=== PATIENT | female | born 1990 | race Caucasian/White ===

== ENCOUNTER 2018-01-03 06:49 | Inpatient (IN) | payer BC ==
[~2018-01-03] VITALS: Ht 162.6 cm; Wt 76.8 kg
[2018-01-06] VITALS (40 sets, daily range): BP systolic 120–166; BP diastolic 71–99; PULSE 58–96; TEMP 97.8–98.5
[2018-01-06] MEDS ORDERED: PRENATAL MVI (07:23)
[2018-01-06] MEDS ORDERED: OSCAL 500 TAB500 MG PO (07:24)
[2018-01-06] MEDS ORDERED: NASACORT OTC NS (07:24)
[2018-01-06] MEDS ORDERED: ALAWAY 10 ML10 ML OP (07:25)
[2018-01-06] MEDS ORDERED: COLACE 100100 MG/CAP PO (07:26)
[2018-01-06] MEDS ORDERED: TYLENOL PM EXTR1 TA1 PO (07:26)
[2018-01-06 08:32] LABS: BASO # 0.1 (0.0-0.2); BASO % 0.8 % (0.0-2.0); EOS # 0.6 (0.0-0.7); EOS % 5.1 % (0-4.0); GRAN # 7.2 (1.4-6.5); GRAN % 64.2 % (42.2-75.2); HEMATOCRIT 38.2 % (37.0-47.0); HEMOGLOBIN 13.6 g/dl (12.5-16.0); LYMPH # 2.7 (1.2-3.4); LYMPH % 23.9 % (20.0-51.0); MEAN CELL VOLUME 90 fl (80.0-100.0); MEAN CORPUSCULAR HEMOGLOBIN 32 pg (27.0-31.0); MEAN CORPUSCULAR HGB CONC 36 g/dl (33.0-37.0); MEAN PLATELET VOLUME 11.7 fl (7.4-10.4); MONO # 0.6 (0.1-0.6); MONO % 5.2 % (1.7-9.3); PLATELET COUNT 193 K/mm3 (130-400); RED BLOOD COUNT 4.24 M/mm3 (4.10-5.30); REDCELL DISTRIBUTION WIDTH-CV 12.9 % (11.5-14.5)
[2018-01-07] VITALS: BP 120/75; PULSE 74; TEMP 97.5
[2018-01-07 04:03] VITALS: BP 129/92; PULSE 69; TEMP 97.4
[2018-01-07 07:50] VITALS: BP 110/72; PULSE 82; TEMP 97.7
[2018-01-07] MEDS ORDERED: IBU800 M1 PO (10:16)
[2018-01-07] MEDS ORDERED: PERCOCET 325 MG1 TA2 PO (10:16)
[2018-01-07 21:40] VITALS: BP 129/85; PULSE 71; TEMP 97.9
[2018-01-08 08:45] VITALS: BP 129/91; PULSE 69; TEMP 97.8
== END 2018-01-08 11:00 | disposition home or self-care (01) | DRG 775 ==
LOC: LDR 01-06 06:49 → OB 01-06 17:45
PROVIDERS: Obstetrics & Gynecology
PROC: 3E033VJ Introduction of Other Hormone into Peripheral Vein, Percutaneous Approach (ICD-10-PCS; principal; 2018-01-06)
PROC: 10E0XZZ Delivery of Products of Conception, External Approach (ICD-10-PCS; 2018-01-06)
PROC: 10907ZC Drainage of Amniotic Fluid, Therapeutic from Products of Conception, Via Natural or Artificial Opening (ICD-10-PCS; 2018-01-06)
PROC: 0UQGXZZ Repair Vagina, External Approach (ICD-10-PCS; 2018-01-06)
DX: O71.4 Obstetric high vaginal laceration alone (principal); O36.0930 Maternal care for other rhesus isoimmunization, third trimester, not applicable or unspecified; Z3A.39 39 weeks gestation of pregnancy; Z37.0 Single live birth; Z22.330 Carrier of Group B streptococcus; O69.81X0 Labor and delivery complicated by cord around neck, without compression, not applicable or unspecified
CPT/HCPCS: J2540; J2590; J2795; J7120

== ENCOUNTER 2019-12-13 18:47 | Inpatient (IN) | payer BC ==
[~2019-12-13] VITALS: Ht 162.6 cm; Wt 80.9 kg
[2019-12-13] VITALS (17 sets, daily range): BP systolic 126–151; BP diastolic 66–97; PULSE 57–89; TEMP 98.1
[~2019-12-13 18:47] MED LIST: ALAWAY 10 ML10 ML OP; COLACE 100100 MG/CAP PO; IBU800 M1 PO; NASACORT OTC NS; OSCAL 500 TAB500 MG PO; PERCOCET 325 MG1 TA2 PO; PRENATAL MVI; TYLENOL PM EXTR1 TA1 PO
--- NOTE | 2019-12-13 19:00 | NUR ---
1899 G3 L1 39.6 WEEK GEST TO LR5 WITH C/O CONTRACTIONS. EFM ON. SVE 4-5/-1. BOW INTACT. ADM ASSESMENT COMPLETED. 1919 DR ZAPATA NOTEFIED. ADM ORDER RECEIVED.
[2019-12-13] MEDS ORDERED: COLACE 100100 MG/CAP PO (19:11)
[2019-12-13] MEDS ORDERED: PRENATAL TABLET PO (19:11)
[2019-12-13] MEDS ORDERED: TYLENOL PM EXTR1 TA1 PO (19:12)
[2019-12-13] MEDS ORDERED: OSCAL 500 TAB500 MG PO (19:12)
--- NOTE | 2019-12-13 20:06 | NUR ---
1956- NIDHI Gill to bedside for epidural placement. Patient and room prepped for this procedure. RN remains at bedside. Maternal O2 sat monitor on and tracing. FHR tracing intermittently due to maternal position. RN remains at bedside adjusting to try and trace constantly. 2005- TD, see anesthesia record. 2012- RN helps patient to WL position in the bed and remains at the bedside. Patient denies any needs at this time.
[2019-12-13 20:33] LABS: BASO # 0.1 (0.0-0.2); BASO % 0.6 % (0.0-2.0); EOS # 0.4 (0.0-0.7); EOS % 2.7 % (0-4.0); GRAN # 10.9 (1.4-6.5); GRAN % 73.4 % (42.2-75.2); HEMATOCRIT 46.8 % (37.0-47.0); HEMOGLOBIN 16.2 g/dl (12.5-16.0); LYMPH # 2.6 (1.2-3.4); LYMPH % 17.7 % (20.0-51.0); MEAN CELL VOLUME 92 fl (80.0-100.0); MEAN CORPUSCULAR HEMOGLOBIN 32 pg (27.0-31.0); MEAN CORPUSCULAR HGB CONC 35 g/dl (33.0-37.0); MEAN PLATELET VOLUME 11.5 fl (7.4-10.4); MONO # 0.8 (0.1-0.6); MONO % 5.1 % (1.7-9.3); PLATELET COUNT 212 K/mm3 (130-400); RED BLOOD COUNT 5.07 M/mm3 (4.10-5.30); REDCELL DISTRIBUTION WIDTH-CV 13.2 % (11.5-14.5)
--- NOTE | 2019-12-13 22:15 | NUR ---
2134- RN to bedside to grab more paper for charting and check on patient. Pt. asked to be repositioned to RL. RN helped. RN remained at bedside due to FHT not tracing well, continually readjusting trying to trace. 2147- SVE 8-9/AL/0. RN called for charge to come check behind her to make sure and to get help with FHT. 2149- Charge to bedside. SVE 9/AL/0. RN's remained at bedside changing pt from WL to WR and the to RL and then to LL, back to WL. 2155- SVE, complete. Called staff to let them know. 2156- Called provider, see notification. 2157- Chandra out with 350 yellow urine noted to be out. 2199- O2 placed on patient to help with FHT. 2203- SROM with small amount of meconium stained fluid noted. Pt. and room set up for delivery. 2210- Dr. Grijalva to bedside. 2215- of viable female infant. placed to mothers abdomen, where nursery nurse assumed care. Cord gases drawn and sent. 2222- of placenta. Fundus massaged to firm by Provider. Pitocin started at 333ml/hr per protocol. Fundus massaged by RN with moderate amount of fluid noted. Provider took over and massaged while manually removing any clots from inside. Provider stated perineum was intact and EBL was 200. Patient, room and bed put back together, perineum cleaned and pad and icepack placed. 2225- Recovery started.
[2019-12-14 00:25] VITALS: BP 146/93; PULSE 60
[2019-12-14 01:25] VITALS: BP 120/78; PULSE 69; TEMP 98
[2019-12-14 05:00] VITALS: BP 129/85; PULSE 71; TEMP 97.8
[2019-12-14 06:58] LABS: BASO # 0.1 (0.0-0.2); BASO % 0.4 % (0.0-2.0); EOS # 0.3 (0.0-0.7); EOS % 1.7 % (0-4.0); GRAN # 13.4 (1.4-6.5); GRAN % 71.7 % (42.2-75.2); HEMATOCRIT 39.2 % (37.0-47.0); LYMPH # 3.5 (1.2-3.4); LYMPH % 18.9 % (20.0-51.0); MEAN CELL VOLUME 92 fl (80.0-100.0); MEAN CORPUSCULAR HGB CONC 35 g/dl (33.0-37.0); MEAN PLATELET VOLUME 11.8 fl (7.4-10.4); MONO # 1.3 (0.1-0.6); MONO % 6.7 % (1.7-9.3); PLATELET COUNT 185 K/mm3 (130-400); RED BLOOD COUNT 4.25 M/mm3 (4.10-5.30); REDCELL DISTRIBUTION WIDTH-CV 13.2 % (11.5-14.5)
[2019-12-14 06:59] LABS: HEMOGLOBIN 13.8 g/dl (12.5-16.0); MEAN CORPUSCULAR HEMOGLOBIN 32 pg (27.0-31.0)
[2019-12-14 08:18] VITALS: BP 134/69; PULSE 63; TEMP 98.1
--- NOTE | 2019-12-14 09:50 | NUR ---
Initial visit; Parents thanked Director Orange for offering congratulations and God's blessings for the of their daughter. Director Orange thanked family for choosing [facility].
[2019-12-14 16:59] VITALS: BP 114/68; PULSE 64; TEMP 98.1
[2019-12-14 22:45] VITALS: BP 126/90; TEMP 99
[2019-12-15 07:00] VITALS: BP 131/86; PULSE 60; TEMP 98.2
[2019-12-15] MEDS ORDERED: MOTRIN 800800 MG/TAB PO (07:23)
[2019-12-15 16:33] VITALS: BP 128/74; PULSE 68; TEMP 98.5
--- NOTE | 2019-12-15 17:14 | NUR ---
Patient given discharge instrucitons. Denies questions. Escorted off unit.
== END 2019-12-15 17:15 | disposition home or self-care (01) | DRG 807 ==
LOC: LDRO 18:47 → LDR 18:48 → LDRO 19:31 → LDR 19:32 → OB 12-14 00:45
PROVIDERS: Student in an Organized Health Care Education/Training Program; ADMIT Obstetrics & Gynecology
PROC: 10E0XZZ Delivery of Products of Conception, External Approach (ICD-10-PCS; principal; 2019-12-13)
DX: O99.824 Streptococcus B carrier state complicating childbirth (principal); Z37.0 Single live birth; O77.0 Labor and delivery complicated by meconium in amniotic fluid; O26.893 Other specified pregnancy related conditions, third trimester; Z3A.39 39 weeks gestation of pregnancy; Z67.91 Unspecified blood type, Rh negative
CPT/HCPCS: J2540; J2590; J7120

== ENCOUNTER 2021-10-06 10:08 | Inpatient (IN) | payer BC ==
[~2021-10-06] VITALS: Ht 10.2 cm; Wt 88.2 kg
[~2021-10-06 10:08] MED LIST changes: +MOTRIN 800800 MG/TAB PO; +PRENATAL TABLET PO
[2021-10-09] VITALS (30 sets, daily range): BP systolic 99–162; BP diastolic 66–96; PULSE 59–113; TEMP 97.6–98.4
--- NOTE | 2021-10-09 06:21 | NUR ---
Presents to L&D for scheduled induction of labor. Ambulatory to unit, accompanied by significant other. Patient reports this is unknown gender, and she has 1 and 3 year old girls at home. Dr.Mark Arora will be chosen glass carrier. Denies any complications with pregnancies or deliveries. Note patient is GBS positive. Discuss PCN G every 4 hours until delivery.
--- NOTE | 2021-10-09 06:50 | NUR ---
Pit start @ 2mU/min after noting reactive monitor strip, Category I tracing.
[2021-10-09 07:04] LABS: BASO # 0.1 K/mm3 (0.0-0.2); BASO % 0.9 % (0.0-2.0); EOS # 0.7 K/mm3 (0.0-0.7); EOS % 7.7 % (0.0-4.0); GRAN # 5.5 K/mm3 (1.4-6.5); GRAN % 59.2 % (42.2-75.2); HEMATOCRIT 40.1 % (37.0-47.0); HEMOGLOBIN 14.1 g/dl (12.5-16.0); LYMPH # 2.4 K/mm3 (1.2-3.4); LYMPH % 25.5 % (20.0-51.0); MEAN CELL VOLUME 92 fl (80.0-100.0); MEAN CORPUSCULAR HEMOGLOBIN 32 pg (27-31); MEAN CORPUSCULAR HGB CONC 35 g/dl (33.0-37.0); MEAN PLATELET VOLUME 11.5 fl (7.4-10.4); MONO # 0.6 K/mm3 (0.1-0.6); PLATELET COUNT 211 K/mm3 (130-400); RED BLOOD COUNT 4.38 M/mm3 (4.10-5.30); REDCELL DISTRIBUTION WIDTH-CV 13.4 % (11.5-14.5)
--- NOTE | 2021-10-09 07:25 | NUR ---
Up to BR, off EFM at this time.
--- NOTE | 2021-10-09 07:34 | NUR ---
here for AROM. Clear fluid noted, SVE unchanged from admit.
[2021-10-09] MEDS ORDERED: NASACORT OTC NS (07:51)
--- NOTE | 2021-10-09 08:38 | NUR ---
Allowed off EFM, up to BR.
--- NOTE | 2021-10-09 08:43 | NUR ---
Sitting upright on provided birthing ball.
--- NOTE | 2021-10-09 08:59 | NUR ---
Note patient uncomfortable with contractions, thinking about epidural soon. Hayley regularly every 2-3 minutes. Will hold on pitocin for now. Currently at 12mU/min.
--- NOTE | 2021-10-09 09:01 | NUR ---
Requests epidural at this time. LR bolus begun. NIDHI Ortega, notified.
--- NOTE | 2021-10-09 09:20 | NUR ---
Allowed off of EFM to empty bladder prior to epidural placement.
--- NOTE | 2021-10-09 09:28 | NUR ---
0923-NIDHI Christy, here for epidural placement per patient request. 0926-Local anesthetic administered by GENERAL WAREHOUSE WORKER. 0927-Epidural needle in skin, space obtained, epidural catheter threaded by NIDHI. 0928-Single shot dose administered by NIDHI, needle out. No adverse effects noted. Tolerates procedure well.
--- NOTE | 2021-10-09 09:30 | NUR ---
Repositioned to supine with wedge to left side following epidural placement.
--- NOTE | 2021-10-09 09:52 | NUR ---
Repositioned to right lateral with left leg up in stirrup following repeat SVE. updated. See physician notification.
--- NOTE | 2021-10-09 10:08 | NUR ---
Repositioned to left lateral with right leg in stirrup.
--- NOTE | 2021-10-09 10:54 | NUR ---
here for delivery.
--- NOTE | 2021-10-09 10:59 | NUR ---
1059-First push attempt with instruction, rapid head descent noted. 1059-Spontaneous vaginal delivery of head by , rapidly followed by shoulders. 1059-Spontaneous vaginal delivery of female by .
--- NOTE | 2021-10-09 11:02 | NUR ---
Red humberto catheter placed by . Estimated 100 mL urine output.
--- NOTE | 2021-10-09 11:03 | NUR ---
Spontaneous vaginal delivery of placenta by . Pit bolus begun immediately following @ 333mU/min.
--- NOTE | 2021-10-09 11:05 | NUR ---
Epidural pump shut off at this time. NIDHI Ortega, notified of delivery.
--- NOTE | 2021-10-09 12:07 | NUR ---
Patient c/o feeling lightheaded. VSS. Head of bed lowered. Bleeding WNL. Uterus first and at the umbilicus.
--- NOTE | 2021-10-09 12:11 | NUR ---
Patient reports feeling "fuzzy" but not dizzy. Pt alert and oriented. VS remain stable. Bleeding WNL, uterus firm and at the umbilicus. VS stable.
--- NOTE | 2021-10-09 12:45 | NUR ---
Up to BR for first time post delivery. Steady gait noted. Simon care provided. Mesh underwear, simon pad applied. Patient changes intol her own clothing. Transfers to PP 214.
[2021-10-10 01:25] VITALS: BP 123/50; PULSE 76; TEMP 97.9
[2021-10-10 07:30] VITALS: BP 118/74; PULSE 83; TEMP 97.7
[2021-10-10] MEDS ORDERED: MOTRIN 800800 MG/TAB PO (08:40)
--- NOTE | 2021-10-10 08:59 | NUR ---
Initial visit; Parents thanked Formula Maker for offering congratulations and God's blessings for the of their third daughter. Formula Maker talked with family and wished them well and thanked them for choosing [place] [facility].
--- NOTE | 2021-10-10 15:16 | NUR ---
1500DISCHARGE INSTRUCTIONS REVIEWED WITH PATIENT. PATIENT VERBALIZED UNDERSTANDING. WILL NOTIFY NURSING STAFF WHEN READY TO LEAVE.
--- NOTE | 2021-10-10 15:31 | NUR ---
1520ALL PERSONAL BELONGINGS GATHERED FROM PATIENT ROOM. PATIENT LEFT AMBULATORY AND IN NO APPARENT DISTRESS. PATIENT ACCOMPANIED BY SPOUSE AND THIS RN.
== END 2021-10-10 15:20 | disposition home or self-care (01) | DRG 807 ==
LOC: OB 10-09 06:19 → LDR 10-09 06:19 → OB 10-09 12:33
PROVIDERS: ADMIT Obstetrics & Gynecology
PROC: 10E0XZZ Delivery of Products of Conception, External Approach (ICD-10-PCS; principal; 2021-10-09)
DX: O48.0 Post-term pregnancy (principal); Z37.0 Single live birth; Z3A.41 41 weeks gestation of pregnancy; O99.824 Streptococcus B carrier state complicating childbirth; Z23 Encounter for immunization
CPT/HCPCS: J2540; J2590; J7120